=== PATIENT | female | born 1970 | race Caucasian/White ===

== ENCOUNTER → 2021-06-20 08:09 | Outpatient (CLI) | payer OTHER, SELFPAY ==
[2021-06-20 15:43] LABS: COVID19 -Nasal RAPID Negative (Negative)
== END ==
PROVIDERS: PCP Family Medicine; Visit Provider Obstetrics & Gynecology
DX: Z20.822 Contact with and (suspected) exposure to COVID-19 (principal); Z01.812 Encounter for preprocedural laboratory examination
CPT/HCPCS: 87635

== ENCOUNTER 2021-06-21 06:23 | Day surgery (SDC) | payer OTHER, SELFPAY ==
[2021-06-10 10:26] VITALS: BMI 39.0
[2021-06-21] VITALS (13 sets, daily range): BP systolic 124–194; BP diastolic 60–106; PULSE 71–102; RESP 10–20; TEMP 35.6–37; O2SAT 92–100; BMI 38.9
--- NOTE | 2021-06-21 | PATH_ITS ---
[facility] Accession Number: [id number] . 01 Material submitted: . uterus - UTERUS,CERVIX,BILATERAL FALLOPIAN TUBES/OVARIES,R OVARIAN CYST . 02 Diagnosis: Uterus, Cervix, Bilateral Fallopian Tubes and Ovaries, Laparoscopic Assisted Vaginal Hysterectomy and Bilateral Salpingo-Oophorectomy (Weight 102 grams): Cervix with patchy parakeratosis and no significant histomorphologic abnormality. Endocervix with prominent Nabothian gland cysts (1-12 mm); negative for glandular dysplasia or malignancy. Weakly proliferative endometrium; negative for glandular hyperplasia, cytologic atypia, or malignancy. Myometrium with involvement by adenomyosis (posterior wall) and with multiple intramural and subserosal leiomyomata (2-20 mm). Right ovary with prominent benign stromal thecosis and with benign cortical inclusion cysts (1-5 mm). Left ovary with benign stromal thecosis and a benign serous cystadenoma (16 mm). Fallopian tubes x2 with multiple benign paratubal cysts (1-3 mm); negative for atypia or malignancy. [facility] 06/23/2021 1641 Local . 02 Electronically signed: . Samantha Herrera MD, Pathologist NPI- [id number] . 01 Gross description: . The specimen is received in formalin, labeled uterus, cervix, bilateral fallopian tubes, bilateral ovaries, and right ovarian cyst and consists of a 102-gram uterus, cervix, bilateral fallopian tubes and ovaries. The specimen measures 11.2 cm from superior fundus to cervix by 7.0 cm from cornu to cornu by 4.5 cm from anterior to posterior. The serosa is bender-pink and smooth. The bender-pink smooth ectocervix measures 4.0 x 4.0 cm and there is a 1.0 x 0.8 cm os. The specimen is bivalved to reveal a bender-pink, herringbone endocervical mucosa. There are multiple mucoid cysts ranging from 0.1-1.2 cm. The endometrial cavity measures 4.5 x 1.5 cm and displays a bender-pink glistening endometrium measuring 0.1 cm in thickness. The myometrium is bender-pink and trabeculated, measuring 1.7 cm in thickness. There are multiple bender-white whorled intramural and subserosal leiomyomata ranging from 0.2-2.0 cm with no areas of hemorrhage, necrosis or cystic degeneration. . The right ovary measures 3.2 x 2.5 x 2.0 cm and the left ovary measures 3.0 x 2.0 x 1.5 cm. The external surfaces are bender and smooth to cerebriform. Sectioning reveals multiple serous-filled unilocular smooth walled cysts ranging from 0.1-1.6 cm, within both ovaries. No papillary excrescences are identified. The right fallopian tube measures 5.5 cm in length by 1.0 cm in diameter and the left fallopian tube measures 5.6 cm in length by 0.8 cm in diameter. The serosa is pink-purple and smooth with multiple paratubal cysts ranging from 0.1-0.3 cm. Sectioning reveals a bender-pink mucosa and a stellate lumen measuring 0.5 cm in diameter. Hot Head Machine Operator sections are submitted. . A1: Anterior cervix. A2: Posterior cervix. A3-A4: Anterior uterus. A5-A6: Posterior uterus. A7-A9: Hot Head Machine Operator leiomyomata and adenomyosis. A10-A11: Hot Head Machine Operator right ovary. A12: Right fallopian tube, special service representative cross-section and bisected fimbria. A13: Hot Head Machine Operator left ovary. A14: Left fallopian tube, special service representative cross-sections and bisected fimbria. (EA:[id number]) /MRV 06/22/2021 1202 Local . 02 Pathologist provided ICD-10: D25.9, N94.6, N92.0, N81.10, N39.3, N83.209, D27.1 . 02 CPT . [id number] Performed at: 01 [facility] [address] [place] [address] [address], [place], [place] [id number] MD Buck Danielle MD Phone: [phone] Performed at: 02 [facility] [id number] [place] [id number] MD Neli Trivedi MD Phone: [phone]
[2021-06-21] MEDS: LACTATED RINGERS 1,000 ML 100 ML IV ×3 (07:10→11:20)
--- NOTE | 2021-06-21 07:14 | PM.PREOP ---
Pre-operative Note COVID-19 COVID-19 status: Negative Result date/Date tested (Pos, Neg/Pending): 06/20/21 Interval Note History & Physical reviewed/Exam performed by Physician: Yes Changes to H&P: Yes H&P completed within 30 days and has changed as indicated here:: Patient has declined all repair of her bladder. Only LAVH will be performed.
[2021-06-21] MEDS: CEFAZOLIN 1 GM VIAL 2 GM IV (08:00)
--- NOTE | 2021-06-21 08:24 | SUR.OPER ---
Lithotomy on padded OR bed. [place] Pad Positioner under torso. Head on pillow, arms padded and tucked at sides. Legs secured in padded yellow fins stirrups.
[2021-06-21] MEDS: BUPIVACAINE 0.25% W/ EPI 30 ML VIAL 60 ML INJ (08:40)
[2021-06-21] MEDS: ROPIVACAINE 0.2% PF 2 MG/ML 10ML AMP 20 ML INJ (09:10)
[2021-06-21] MEDS: ACETAMINOPHEN IV 1,000 MG/100 ML VIAL 400 MG IV (09:23)
--- NOTE | 2021-06-21 10:04 | P.OP_ITS ---
Operative Date/Time/Diagnoses Date of procedure: 06/21/21 Time of procedure: 10:04 Pre-op diagnosis: Menorrhagia with right ovarian cysts and dysmenorrhea Post-op diagnosis: same Procedure & Clinicians Procedure: Laparoscopic-assisted vaginal hysterectomy with bilateral salpingectomies Same procedure as scheduled: Yes Indications: Menorrhagia, dysmenorrhea, right ovarian cyst Surgeon: Junie Goins Commission Specialist: Suzy Schroeder Click Yes if Unassisted: No Anesthesia Type: General Operative Notes Findings: Adhesions of the omentum to the anterior abdominal wall. No endom etriosis. Small uterine fibroids. Small right ovarian cyst. No obvious internal hernias. Closure Type: primary Specimen(s): other (Uterus, tubes and ovaries) Estimated Blood Loss (mL): 100 Blood products transfused: none Procedure in detail: Patient was brought to the operating room where she underwent general anesthesia. She was placed in [facility] stirrups. A 20 point check system was reviewed. 2 gram Ancef were in prior to beginning case. Wa rming was in place. Pulsatile stockings were in place and functional. She was prepped and draped in the usual sterile fashion. A single-tooth tenaculum was placed on the anterior lip of the cervix. The cervix was dilated to #6 Hegar dilator to allow the uterine manipulator to be placed through the cervix into the uterus with the balloon inflated with 3 mL of air. A latex free Whitten catheter was placed. Area of a prior umbilical incision was injected with lidocaine. An incision was made with the scalpel. The varies needle was placed in the abdomen. Correct placement was noted by withdrawing on the syringe and the having a drop of water fall easily through the syringe into the abdomen. The abdomen was insufflated with CO2. 5 mm trochars were placed in the right and left lower quadrant under direct visualization. There did not appear to be any damage with placement of the trochars. The PK generator was used to cauterize and cut the infundibulopelvic ligaments bilaterally. Sequential bites were taken down the broad ligament freeing the fallopian tubes and ovaries bilaterally. Next the procedure was switched to a vaginal approach. A double-tooth tenaculum was placed on the cervix. The tissue around the cervix was injected with 1/4 % Marcaine with epinephrine approximately 12 cc. An incision was made around the cervix and the tissue pushed superiorly. And a posterior colpotomy incision was made. The uterosacral ligaments were clamped, cut, and ligated with 0 Vicryl suture which was used throughout the rest the case unless otherwise indicated. The bladder pillars were clamped cut and ligated. Using sharp and blunt dissection the bladder was pushed away from the cervix. Sequential bites were taken up the cardinal and broad ligaments with the LigaSure. An anterior colpotomy incision was made and the bladder held away from the uterus. The uterus tubes and ovaries were removed vaginally. Adequate hemostasis noted. The vaginal cuff was closed from anterior to posterior with [id number] sutures of 0 Vicryl. The abdomen was reinsufflated and adequate hemostasis was obtained with the gyrus. The CO2 was allowed to escape from the abdomen and the trochars were removed. The skin was closed with 4-0 Monocryl. Counts of instruments and sponges were correct. Patient went to recovery room in good condition. Complications: none Post-operative Condition: stable Disposition: Acute Care (Overnight evaluation) Plan for aftercare: Likely home in a.m.
[2021-06-21] MEDS: KETOROLAC 30 MG/ML VIAL IV ×2 (11:19→16:20)
--- NOTE | 2021-06-21 15:02 | PC.NURSE ---
Pt is A&Ox3, VSS, afebrile. Pt on RA 97% LS CTA. arrived to unit from PACU at 1030. Shortly after arrival assisted x1 SBA to BR voiding large amounts of clear yellow urine, drinking several cups of water. Pt denies N/V yet declines food this afternoon. Pt reports good pain control with IV toradol took the edge off she states she feels good walking around and standing ambulating the back multiple times. Pt with + BS. Foist evaluating patient this afternoon at bedside reports she may return to discharge patient home later this evening.
--- NOTE | 2021-06-21 16:16 | P.DS_ITS ---
History of Present Illness History of Present Illness Date Patient Seen: 06/21/21 Time Patient Seen: 16:16 Chief complaint: OPB Narrative: Patient is status post laparoscopic assisted vaginal hysterectomy with bilateral salpingo oophorectomies. She was originally scheduled to spend the night but she is doing so well she is requesting discharge home now. Discharge Providers Provider Discharge Date: 06/21/21 Primary care physician: Sofia Benitez DO Consults: 06/21/21 10:34 Consult to Respiratory Therapy Evaluate & Treat Comment: sleep apnea Physician Instructions: Evaluate and treat Discharge provider: Junie Goins MD Summary Hospital Course Discharge Diagnosis: Menorrhagia and dysmenorrhea Hospital Course: Patient underwent a laparoscopic assisted vaginal hysterectomy with bilateral salpingo oophorectomy. Patient is ambulatory. She is urinating well. She has her pain well controlled with oral pain medicine. She is tolerating regular diet. Status at Discharge Cognitive/behavioral status at discharge: oriented Functional status at discharge: independent ambulation Overall status at discharge: patient is progressing back to baseline Time Spent with Patient Time spent: Less than 30 minutes Exam Vital Signs (past 8 hours): - 06/21/21 09:39 06/21/21 09:44 06/21/21 09:49 Temperature 97.6 F 96.3 F L 96.1 F L Pulse Rate 97 H 96 H 95 H Respiratory Rate 13 13 10 L Blood Pressure 127/78 132/75 131/80 Pulse Oximetry 92 98 100 06/21/21 09:54 06/21/21 10:06 06/21/21 10:09 Temperature 96.1 F L 97.4 F L 96.5 F L Pulse Rate 98 H 77 Respiratory Rate 10 L 12 Blood Pressure 132/74 136/71 Pulse Oximetry 100 97 06/21/21 10:22 06/21/21 10:30 06/21/21 11:00 Temperature 96.6 F L 97.6 F 98 F Pulse Rate 79 71 81 Respiratory Rate 12 17 16 Blood Pressure 138/76 124/60 140/91 H Pulse Oximetry 97 97 95 06/21/21 11:30 06/21/21 12:22 06/21/21 15:42 Temperature 98 F 98.1 F 97.6 F Pulse Rate 92 H 76 84 Respiratory Rate 16 16 18 Blood Pressure 157/105 H 140/90 136/88 Pulse Oximetry 97 97 97 Oxygen Delivery Method Room Air Oxygen Flow Rate 0 Narrative Exam Narrative: Patient's abdomen is soft, nontender. Dressings are clean, dry, intact. Minimal vaginal bleeding. Extremities without edema and nontender. [facility] Medical History (Updated 06/03/21 @ 21:55 by Junie Goins MD) Abnormal Pap smear of cervix (~1999) Fibroids (~2018) Glaucoma (~1970) Malignant hyperthermia due to anesthesia Menorrhagia with irregular cycle (~1999) Painful menstrual periods (~1999) Right ovarian cyst (~1999) Sleep apnea (~2014) Tinea versicolor (~1985) Tinnitus (~2017) Vertigo (~1985) Surgical History (Updated 06/21/21 @ 09:59 by Junie Goins MD) Anesthesia History of appendectomy (~1988) History of cholecystectomy (~1989) Family History (Updated 05/25/21 @ 20:31 by Gayla Lynn) Father History of emphysema Grandfather Cancer Grandmother Cancer Social History household members: spouse Smoking Status: Former smoker alcohol intake: current Discharge Assessment & Plan Assessment and Plan Assessment: Patient is status post laparoscopic-assisted vaginal hysterectomy with bilateral salpingo oophorectomy who is doing very well so decision was made to discharge home. Plan of Treatment: Patient will be discharged home to be followed up in 2 weeks. Routine precautions reviewed with the patient. Discharge Plan Discharge Plan Patient Disposition: Home Discharge orders & Medications Discharge Orders: Discharge (Order); Ordered 06/21/21 Ordered By: Junie Goins Prescriptions: New tramadol 50 mg Tablet 100 mg PO QID PRN (Reason: Pain, Moderate (4-6)) Qty: 30 RF: 0 Discontinued acetaminophen-codeine 300-30 mg tablet 1 tab PO Q4-6H PRN (Reason: pain) Qty: 30 RF: 0 Follow up/Referrals: Sofia Benitez DO [Primary Care Provider] - Diet/Activity/Treatments Diet: Regular Activity: Nothing in vagina or lifting over 20 lb for 6 weeks Skin/Wound/Dressing Care Report to your healthcare provider any signs of infection, such as:: chills, fever and increased pain Dressing: The Band-Aids on until tomorrow then remove. Can get Steri-Strips wet just pat dry remove in 1 week if they have not fallen off Visit Report/Discharge Packet Instructions: DI for Hysterectomy, DI for Laparoscopy Discharge Data Primary Care Provider: Sofia Benitez Attending Provider: Junie Goins
--- NOTE | 2021-06-21 17:19 | PC.NURSE ---
pt' pain was 4/10 well controlled with ordered toradol, pt discharge instructions given, pt took all belongings from room and was escorted by nurse to car, pt left with spouse at 1715.
== END 2021-06-21 17:15 | disposition home or self-care (01) ==
LOC: OR 06:24 → AC 10:15
PROVIDERS: PCP Family Medicine; Referring Provider Specialist; Visit Provider Specialist
PROC: 0UT9FZZ Resection of Uterus, Via Natural or Artificial Opening With Percutaneous Endoscopic Assistance (ICD-10-PCS; principal; 2021-06-21 07:45)
DX: N92.0 Excessive and frequent menstruation with regular cycle (principal); N94.6 Dysmenorrhea, unspecified; N83.201 Unspecified ovarian cyst, right side; K66.0 Peritoneal adhesions (postprocedural) (postinfection); G47.30 Sleep apnea, unspecified; F41.9 Anxiety disorder, unspecified; E66.9 Obesity, unspecified; Z68.39 Body mass index [BMI] 39.0-39.9, adult; N88.8 Other specified noninflammatory disorders of cervix uteri; N83.8 Other noninflammatory disorders of ovary, fallopian tube and broad ligament; N83.291 Other ovarian cyst, right side; D39.12 Neoplasm of uncertain behavior of left ovary; D39.11 Neoplasm of uncertain behavior of right ovary; D25.1 Intramural leiomyoma of uterus; D25.2 Subserosal leiomyoma of uterus
CPT/HCPCS: 58552; J0131; J0690; J1100; J1885; J2405; J2704; J2795; J3010

== ENCOUNTER → 2022-03-20 09:29 | Outpatient (CLI) | payer OTHER, SELFPAY ==
[2021-06-21 10:34] VITALS: BMI 38.9
[2022-03-20 10:00] LABS: Add Manual Diff / Slide Review NO; Basophils Absolute Auto 0 /uL (0-100); Basophils Percent Auto 0.3 % (0-2); Eosinophils Absolute Auto 100 /uL (0-450); Eosinophils Percent Auto 1.2 % (2-4); Hematocrit 42.8 % (36-46); Hemoglobin 14.1 g/dL (12.0-16.0); Lymphocytes Absolute Auto 2300 /uL (1100-4500); Lymphocytes Percent Auto 25.5 % (25-40); Mean Corpuscular Hemoglobin 28.1 PG (26-34); Mean Corpuscular Volume 85.2 fL (80-100); Monocytes Absolute Auto 600 /uL (0-900); Monocytes Percent Auto 6.4 % (3-14); Neutrophils Absolute Auto 5900 /uL (1500-7000); Neutrophils Percent Auto 66.6 % (50-75); Platelet Count 265 X10^3/uL (150-400); Red Blood Cell Count 5.02 X10^6/uL (4.0-5.2); White Blood Cell Count 8.9 X10^3/uL (4.5-11.0)
[2022-03-20 10:27] LABS: Alanine Aminotransferase 37 IU/L (<35); Albumin 4.7 g/dL (3.5-5.0); Albumin Globulin Ratio 1.6 (1.0-2.8); Aspartate Aminotransferase 31 IU/L (14-36); BUN Creatinine Ratio 17.1 (6-22); Bilirubin Total 0.4 mg/dL (0.2-1.3); Blood Urea Nitrogen 13 mg/dL (7-17); Calcium 9.4 mg/dL (8.4-10.2); Carbon Dioxide 27 mmol/L (22-32); Chloride 104 mmol/L (98-107); Cholesterol 137 mg/dL (140-199); Estimated Glomerular Filt Rate > 60 mL/min (>60); Glucose 134 mg/dL (70-100); HDL Cholesterol 49 mg/dL (40-60); HEMOLYSIS < 15 (0-50); LDL Cholesterol Calculated 71 mg/dL (<100); Potassium 4.8 mmol/L (3.4-5.1); Sodium 139 mmol/L (137-145); Total Protein 7.7 g/dL (6.3-8.2); Triglycerides 85 mg/dL (35-150)
[2022-03-20 10:32] LABS: Alkaline Phosphatase 82 U/L (38-126)
[2022-03-20 10:39] LABS: Vitamin D 25 Hydroxy (D3) 32.9 ng/mL (30.0-100.0)
== END ==
PROVIDERS: PCP Family Medicine; Referring Provider Family Medicine; Visit Provider Family Medicine
DX: Z13.220 Encounter for screening for lipoid disorders (principal); E55.9 Vitamin D deficiency, unspecified; R10.30 Lower abdominal pain, unspecified
CPT/HCPCS: 36415; 80053; 80061; 82306; 85025; 87086

== ENCOUNTER → 2022-03-20 10:28 | Outpatient (CLI) | payer OTHER, SELFPAY ==
[2021-06-21 10:34] VITALS: BMI 38.9
--- NOTE | 2022-03-20 10:31 | DI.RAD.S_ITS ---
PROCEDURE: XR ABDOMEN MIN 2V INDICATIONS: low abdominal pain TECHNIQUE: 2 views of the abdomen were acquired. COMPARISON: None. FINDINGS: Surgical changes and devices: Cholecystectomy clips. Bowel: No pneumoperitoneum. Paucity of small bowel gas limits evaluation for small bowel dilatation. There is scattered gas in the colon and stomach. No dilated loops of bowel identified. Soft tissues: No masses; visualized solid organ contours appear normal in size. No suspicious abdominal calcifications. Bones: No suspicious bony abnormalities. IMPRESSION: Paucity of small bowel gas limits evaluation for small bowel dilatation. However, suspect nonobstructive bowel gas pattern. If clinically indicated consider further evaluation with CT abdomen pelvis with IV contrast. Dictated by: Simeon Snell M.D. on 03/20/2022 at 11:25 Approved by: Simeon Snell M.D. on 03/20/2022 at 11:27
== END ==
PROVIDERS: PCP Family Medicine; Referring Provider Nurse Practitioner Family; Visit Provider Nurse Practitioner Family
DX: R10.30 Lower abdominal pain, unspecified (principal); R73.01 Impaired fasting glucose; Z13.220 Encounter for screening for lipoid disorders; E55.9 Vitamin D deficiency, unspecified
CPT/HCPCS: 36415; 74019; 80053; 80061; 82306; 83036; 85025; 87086

== ENCOUNTER → 2022-03-20 14:25 | Outpatient (CLI) | payer OTHER, SELFPAY ==
[2021-06-21 10:34] VITALS: BMI 38.9
[2022-03-20 14:47] LABS: Hemoglobin A1C% w Est Avg Glu 6.6 % (4.0-6.0)
== END ==
PROVIDERS: PCP Family Medicine; Referring Provider Family Medicine; Visit Provider Family Medicine
DX: R73.01 Impaired fasting glucose (principal)
CPT/HCPCS: 83036

== ENCOUNTER 2022-03-21 17:06 | Emergency (ER) | payer OTHER, SELFPAY ==
[2021-06-21 10:34] VITALS: BMI 38.9
[2022-03-21 17:11] VITALS: BP 175/7; PULSE 93; RESP 16; TEMP 37; O2SAT 98; BMI 38.6
--- NOTE | 2022-03-21 17:48 | DI.CT.S_ITS ---
PROCEDURE: CT ABDOMEN PELVIS W CON INDICATIONS: partial bowel obstruction TECHNIQUE: After the administration of oral and IV contrast, axial sections were acquired from the lung bases to the pubic symphysis. Coronal and sagittal reformats were performed. For radiation dose reduction, the following was used: automated exposure control, adjustment of mA and/or kV according to patient size. COMPARISON: None. FINDINGS: Image quality: Excellent. Lung bases: Unremarkable. Heart: No significant findings. ABDOMEN: Liver: Normal contour. Hepatic steatosis. Enlarged, measuring 21.6 cm in length. Gallbladder: Surgically absent. Biliary ducts: Unremarkable. Pancreas: Unremarkable. Spleen: Unremarkable. Adrenal Glands: Unremarkable. Kidneys and Ureters: Unremarkable. Stomach and Bowel: No evidence of intestinal obstruction. Sigmoid diverticulosis. The appendix is not well seen. Peritoneum: No abnormal intraperitoneal fluid. No free air. Ventral Wall: Small fat containing periumbilical hernia. Fatty atrophy of the right rectus muscle. Abdominal Nodes: No retroperitoneal or mesenteric adenopathy by size criteria. Vessels: Aorta and inferior vena cava are normal in size. PELVIS: Pelvic Organs: Unremarkable. Bladder: Unremarkable. Pelvic Nodes: No enlarged lymph nodes. Miscellaneous: No inguinal hernias are seen. Bones: Unremarkable. IMPRESSION: 1. No acute intra-abdominal/pelvic abnormality. 2. Hepatomegaly with steatosis. Dictated by: Joss Grubbs M.D. on 03/21/2022 at 18:42 Approved by: Joss Grubbs M.D. on 03/21/2022 at 18:45
[2022-03-21 18:00] LABS: Add Manual Diff / Slide Review NO; Basophils Absolute Auto 100 /uL (0-100); Basophils Percent Auto 0.5 % (0-2); Eosinophils Absolute Auto 100 /uL (0-450); Eosinophils Percent Auto 1.4 % (2-4); Hematocrit 42.7 % (36-46); Hemoglobin 14.3 g/dL (12.0-16.0); Lymphocytes Absolute Auto 2600 /uL (1100-4500); Lymphocytes Percent Auto 28.5 % (25-40); Mean Corpuscular HGB Conc 33.5 % (30-36); Mean Corpuscular Hemoglobin 28.3 PG (26-34); Mean Corpuscular Volume 84.4 fL (80-100); Monocytes Absolute Auto 800 /uL (0-900); Monocytes Percent Auto 8.2 % (3-14); Neutrophils Absolute Auto 5600 /uL (1500-7000); Neutrophils Percent Auto 61.4 % (50-75); Platelet Count 243 X10^3/uL (150-400); Red Blood Cell Count 5.06 X10^6/uL (4.0-5.2); Red Cell Distribution Width 13.9 % (11.6-14.8); White Blood Cell Count 9.2 X10^3/uL (4.5-11.0)
[2022-03-21 18:09] LABS: Alanine Aminotransferase 37 IU/L (<35); Albumin Globulin Ratio 1.6 (1.0-2.8); Alkaline Phosphatase 82 U/L (38-126); Aspartate Aminotransferase 36 IU/L (14-36); BUN Creatinine Ratio 20.8 (6-22); Bilirubin Total 0.7 mg/dL (0.2-1.3); Blood Urea Nitrogen 15 mg/dL (7-17); Calcium 9.2 mg/dL (8.4-10.2); Carbon Dioxide 24 mmol/L (22-32); Chloride 104 mmol/L (98-107); Estimated Glomerular Filt Rate > 60 mL/min (>60); Globulin 3.2 g/dL (1.7-4.1); Glucose 107 mg/dL (70-100); HEMOLYSIS 60 (0-50); Lipase 107 U/L (23-300); Potassium 4.1 mmol/L (3.4-5.1); Sodium 138 mmol/L (137-145); Total Protein 8.2 g/dL (6.3-8.2)
--- NOTE | 2022-03-21 18:35 | PC.NURSE ---
patients IV accidentally pulled out by the patient while she was pulling up her pants. dressing applied by install and repair technician. bleeding controlled.
--- NOTE | 2022-03-21 20:50 | ED.ABDPAIN ---
HPI - Abdominal Pain General Chief Complaint: Abdominal Pain Stated Complaint: possible bowel blockage Time Seen by Provider: 03/21/22 20:50 Source: patient Mode of arrival: Ambulatory Limitations: no limitations History of Present Illness HPI narrative: This is a 52-year-old female comes emergency department for concern for possible bowel blockage. She has had some nausea, abdominal pain in the lower abdomen and periumbilical as well as small thin snake like stools which have been soft the past week. Patient's feels like she has to align her body to a and push very hard have bowel movements. Patient denies any fevers. No vomiting. No back or flank pain. No dysuria urgency or frequency. No black or bloody stools. She has had hysterectomy. She had an x-ray yesterday at her primary care physician was read as possible bowel obstruction. She had urine specimen yesterday which shows no acute changes in urine culture has shown no growth to date. Patient does note she had a sensation of some fullness at the vaginal opening after her surgery which was earlier in the year. She tried some pelvic floor exercises for the past 2 weeks and that is when she started to notice a change in her bowel movements. Related Data Home Medications Medication Instructions Recorded Confirmed No Known Home Medications 11/29/21 03/20/22 Allergies Allergy/AdvReac Type Severity Reaction Status Date / Time morphine Allergy Severe thoat Verified 03/21/22 17:18 swelling, hives topiramate Allergy Severe throat Verified 03/21/22 17:18 swelling, hives ibuprofen AdvReac Severe Headache Verified 03/21/22 17:18 meperidine [From Demerol] AdvReac Severe Vomiting Verified 03/21/22 17:18 oxycodone [From Percocet] AdvReac Severe Vomiting Verified 03/21/22 17:18 Latex, Natural Rubber AdvReac Intermediate Redness of Verified 03/21/22 17:18 Skin Review of Systems Review of Systems ROS Unobtainable: All systems reviewed & are unremarkable except as noted in HPI and below Patient History Medical History Abnormal Pap smear of cervix (~1999) Chicken pox (~1980) Chronic back pain (~2018) Elevated blood pressure reading without diagnosis of hypertension Elevated fasting glucose Fibroids (~2018) Glaucoma (~1970) Heavy menstrual period (~2012) Hx of malignant hyperthermia Hypertension (~1988) Painful menstrual periods (~1999) Post covid-19 condition, unspecified Right ovarian cyst (~1999) Sleep apnea (~2014) Tinea versicolor (~1985) Tinnitus (~2017) Vertigo (~1985) Vitamin D deficiency Surgical History Anesthesia History of appendectomy (~1988) History of cholecystectomy (~1989) S/P bilateral salpingo-oophorectomy (~06/21/21) S/P laparoscopic assisted vaginal hysterectomy (LAVH) (~06/21/21) Family History Father History of emphysema COPD (chronic obstructive pulmonary disease) Grandfather Cancer Grandmother Cancer Mother Breast cancer Grandmother Colon cancer Son Cancer of leg Social History household members: spouse Smoking Status: Former smoker alcohol intake: current Smoking Status: Former smoker alcohol intake frequency: holidays/special occasions only Substance Use Type: does not use Exam Narrative Exam Narrative: GENERAL: Alert and oriented x three, female in mild distress. HEENT: Head normocephalic, atraumatic, EOMI, pupils reactive, face symmetric, moist mucous membranes NECK: Supple, full range of motion CARDIOVASCULAR: Regular rate and rhythm without murmurs, rubs or gallops. RESPIRATORY: Breath sounds equal bilaterally, no wheezes rales or rhonchi. ABDOMEN: Soft, mild tenderness mainly a periumbilical region. bowel sounds all 4 quadrants. No guarding or rebound, rigidity, no mass : No CVA tenderness EXTREMITIES: Normal range of motion, no clubbing or edema. Neurovascularly intact NEUROLOGICAL: Cranial nerves II through XII grossly intact. Moving all extremities SKIN: Warm, dry, no petechiae, no rashes or lesions. Initial Vital Signs Initial Vital Signs: Vital Signs Temperature 98.6 F 03/21/22 17:11 Pulse Rate 93 H 03/21/22 17:11 Respiratory Rate 16 03/21/22 17:11 Blood Pressure 175/7 H 03/21/22 17:11 Pulse Oximetry 98 03/21/22 17:11 Course Orders Ordered: Discontinued Medications Ondansetron HCl (Ondansetron 4 Mg/2 Ml Inj) 4 mg IV NOW ONE Stop: 03/21/22 18:24 Vital Signs Vital signs: Vital Signs - 8 hr 03/21/22 17:11 03/21/22 21:06 03/21/22 21:07 Temperature 98.6 F Pulse Rate 93 H 85 86 Respiratory Rate 16 Blood Pressure 175/7 H 176/101 H Pulse Oximetry 98 98 98 MDM - Abdominal Pain Lab Data Result diagrams: 03/21/22 17:40 03/21/22 17:40 Labs: Lab Results 03/21/22 03/21/22 Range/Units 17:40 17:40 WBC 9.2 (4.5-11.0) X10^3/uL RBC 5.06 (4.0-5.2) X10^6/uL Hgb 14.3 (12.0-16.0) g/dL Hct 42.7 (36-46) % MCV 84.4 (80-100) fL MCH 28.3 (26-34) PG MCHC 33.5 (30-36) % RDW 13.9 (11.6-14.8) % Plt Count 243 (150-400) X10^3/uL Neut % (Auto) 61.4 (50-75) % Lymph % (Auto) 28.5 (25-40) % [place] % (Auto) 8.2 (3-14) % Eos % (Auto) 1.4 L (2-4) % Baso % (Auto) 0.5 (0-2) % Neut # (Auto) 5600 (3591-4153) /uL Lymph # (Auto) 2600 (1360-3398) /uL [place] # (Auto) 800 (0-900) /uL Eos # (Auto) 100 (0-450) /uL Baso # (Auto) 100 (0-100) /uL Sodium 138 (137-145) mmol/L Potassium 4.1 (3.4-5.1) mmol/L Chloride 104 (98-107) mmol/L Carbon Dioxide 24 (22-32) mmol/L BUN 15 (7-17) mg/dL Creatinine 0.72 (0.52-1.04) mg/dL Estimated GFR > 60 (>60) mL/min BUN/Creatinine Ratio 20.8 (6-22) Glucose 107 H (70-100) mg/dL Calcium 9.2 (8.4-10.2) mg/dL Total Bilirubin 0.7 (0.2-1.3) mg/dL AST 36 (14-36) IU/L ALT 37 H (<35) IU/L Alkaline Phosphatase 82 (38-126) U/L Total Protein 8.2 (6.3-8.2) g/dL Albumin 5.0 (3.5-5.0) g/dL Globulin 3.2 (1.7-4.1) g/dL Albumin/Globulin Ratio 1.6 (1.0-2.8) Lipase 107 (23-300) U/L Imaging Data CT scan - abdomen/pelvis: Radiologist's Impression: [address] [address] [address] Scan Report Signed Patient: Hannah Valderrama MR#: [id number] : 1970 Acct:[id number] Age/Sex: 52 / F Date of Service: 03/21/22 Loc: ED Accession Number: [id number] ?? Procedure: CT abdomen pelvis w con Ordering Provider: Yen Soto D.O. PROCEDURE:? CT ABDOMEN PELVIS W CON ? INDICATIONS:? partial bowel obstruction ? TECHNIQUE:? After the administration of oral and IV contrast, axial sections were acquired from the lung bases to the pubic symphysis.? Coronal and sagittal reformats were performed.? For radiation dose reduction, the following was used:? automated exposure control, adjustment of mA and/or kV according to patient size. ? COMPARISON:? None. ? FINDINGS:? Image quality:? Excellent.? ? Lung bases:? Unremarkable.? ? Heart:? No significant findings. ? ? ABDOMEN: Liver:? Normal contour.? Hepatic steatosis.? ? Enlarged, measuring 21.6 cm in length. Gallbladder:? Surgically absent.? ? Biliary ducts:? Unremarkable.? ? Pancreas:? Unremarkable.? ? Spleen:? Unremarkable.? ? Adrenal Glands:? Unremarkable.? ? Kidneys and Ureters:? Unremarkable.? ? ? Stomach and Bowel:? No evidence of intestinal obstruction.? Sigmoid diverticulosis.? The appendix is not well seen. Peritoneum:? No abnormal intraperitoneal fluid.? No free air.? ? Ventral Wall:? Small fat containing periumbilical hernia.? Fatty atrophy of the right rectus muscle. Abdominal Nodes:? No retroperitoneal or mesenteric adenopathy by size criteria.? Vessels:? Aorta and inferior vena cava are normal in size.? ? PELVIS: Pelvic Organs:? Unremarkable.? ? Bladder:? Unremarkable.? ? Pelvic Nodes: No enlarged lymph nodes.? Miscellaneous: No inguinal hernias are seen. ? ? ? Bones:? Unremarkable.? IMPRESSION:? ? 1. No acute intra-abdominal/pelvic abnormality. 2. Hepatomegaly with steatosis.? ? ? Dictated by: Joss Grubbs M.D. on 03/21/2022 at 18:42 ? ? Approved by: Joss Grubbs M.D. on 03/21/2022 at 18:45?? [facility] Narrative Medical decision making narrative: This is a 52-year-old female with abdominal, nausea and thin stools for the past week. CT does not show any signs of obstruction. Labs are reassuring, urine from yesterday is negative in urine culture pending has not shown any growth. She has had a hysterectomy. We discussed differential could include adhesions, changes to pelvic floor, we discussed she did have a pattern megaly, she has some diverticulosis but no diverticulitis. And a small fat containing periumbilical hernia as well as fatty atrophy of the right rectus muscle. These were all discussed with patient. Plan for follow-up with primary care, possible colonoscopy if symptoms persist, pelvic floor PT and re-evaluation if new worsening abdominal pain. Discharge Plan Departure Patient Disposition: Home Clinical Impression: Abdominal pain, Hepatomegaly Instructions: DI for Abdominal Pain-Adult Activity Restrictions/Additional Instructions: Follow-up with her physician for recheck Your imaging today shows hepatomegaly with steatosis, your abdominal labs do not show major changes to your liver enzymes but please follow with your physician. Diet changes and weight loss are the most helpful components to treating this over the long-term. You do have a small fat containing periumbilical hernia. It is noted that there was some fatty atrophy of the right rectus muscle. Please return to the ER for fevers, rapidly worsening pain, passing out, persistent vomiting, black or bloody stools if your not having any bowel movements, passing gas or flatus or other new or concerning symptoms. Prescriptions: No Action No Known Home Medications 0RF Referrals: Mert Dominguez DO [Primary Care Provider] -
[2022-03-21 21:06] VITALS: PULSE 85; O2SAT 98
[2022-03-21 21:07] VITALS: BP 176/101; PULSE 86; O2SAT 98
== END 2022-03-21 21:38 | disposition home or self-care (01) ==
PROVIDERS: Emergency Medicine; Emergency Provider Emergency Medicine; PCP Family Medicine
DX: R10.30 Lower abdominal pain, unspecified (principal); R11.0 Nausea; R16.0 Hepatomegaly, not elsewhere classified
CPT/HCPCS: 36415; 74177; 80053; 83690; 85025; 99283; Q9967

== ENCOUNTER → 2022-03-24 10:03 | Outpatient (CLI) | payer OTHER, SELFPAY ==
[2021-06-21 10:34] VITALS: BMI 38.9
[2022-03-27 12:42] LABS: Fecal Immunochemical Test Negative (Negative)
== END ==
PROVIDERS: PCP Family Medicine; Referring Provider Family Medicine; Visit Provider Family Medicine
DX: Z12.11 Encounter for screening for malignant neoplasm of colon (principal)
CPT/HCPCS: 82274

== ENCOUNTER → 2022-06-14 07:00 | Outpatient (CLI) | payer OTHER, SELFPAY ==
[2021-06-21 10:34] VITALS: BMI 38.9
[2022-06-14 08:09] LABS: Add Manual Diff / Slide Review NO; Basophils Absolute Auto 0 /uL (0-100); Basophils Percent Auto 0.4 % (0-2); Eosinophils Absolute Auto 100 /uL (0-450); Eosinophils Percent Auto 1.8 % (2-4); Hematocrit 42.2 % (36-46); Hemoglobin 13.9 g/dL (12.0-16.0); Lymphocytes Absolute Auto 2400 /uL (1100-4500); Lymphocytes Percent Auto 33.9 % (25-40); Mean Corpuscular HGB Conc 32.9 % (30-36); Mean Corpuscular Hemoglobin 28.2 PG (26-34); Mean Corpuscular Volume 85.7 fL (80-100); Monocytes Absolute Auto 500 /uL (0-900); Monocytes Percent Auto 6.6 % (3-14); Neutrophils Absolute Auto 4100 /uL (1500-7000); Neutrophils Percent Auto 57.3 % (50-75); Platelet Count 222 X10^3/uL (150-400); Red Blood Cell Count 4.92 X10^6/uL (4.0-5.2); Red Cell Distribution Width 14.9 % (11.6-14.8); White Blood Cell Count 7.1 X10^3/uL (4.5-11.0)
[2022-06-14 08:31] LABS: Alanine Aminotransferase 30 IU/L (<35); Albumin 4.5 g/dL (3.5-5.0); Albumin Globulin Ratio 1.7 (1.0-2.8); Alkaline Phosphatase 81 U/L (38-126); Aspartate Aminotransferase 22 IU/L (14-36); BUN Creatinine Ratio 23.1 (6-22); Bilirubin Total 0.4 mg/dL (0.2-1.3); Blood Urea Nitrogen 18 mg/dL (7-17); Calcium 9.5 mg/dL (8.4-10.2); Carbon Dioxide 26 mmol/L (22-32); Chloride 105 mmol/L (98-107); Cholesterol 133 mg/dL (140-199); Estimated Glomerular Filt Rate > 60 mL/min (>60); Globulin 2.7 g/dL (1.7-4.1); Glucose 114 mg/dL (70-100); HDL Cholesterol 51 mg/dL (40-60); HEMOLYSIS < 15 (0-50); LDL Cholesterol Calculated 60 mg/dL (<100); Sodium 140 mmol/L (137-145); Total Protein 7.2 g/dL (6.3-8.2); Triglycerides 108 mg/dL (35-150)
== END ==
PROVIDERS: PCP Family Medicine; Referring Provider Family Medicine; Visit Provider Family Medicine
DX: R16.0 Hepatomegaly, not elsewhere classified (principal); E11.9 Type 2 diabetes mellitus without complications; R03.0 Elevated blood-pressure reading, without diagnosis of hypertension
CPT/HCPCS: 36415; 80053; 80061; 83036; 85025

== ENCOUNTER 2024-10-04 11:42 | Emergency (ER) | payer OTHER, SELFPAY ==
[2021-06-21 10:34] VITALS: BMI 38.9
[2024-10-04] VITALS (18 sets, daily range): BP systolic 160–213; BP diastolic 72–104; PULSE 77–99; RESP 11–26; TEMP 36.6–36.9; O2SAT 95–99; BMI 39.5
--- NOTE | 2024-10-04 12:59 | ED_ITS ---
HPI - Back Pain/Injury General Chief Complaint: Back Pain/Injury Stated Complaint: abd pain and back pain Time Seen by Provider: 10/04/24 12:59 History of Present Illness HPI Narrative: Patient is a 54-year-old female past medical history of hypertension comes into the ED from home for evaluation of low back pain. She states that she was bending over to unlatch a drawer and threw out her back. states that she does have a history of degenerative disc disease in L4-L5, does arrive by ambulance, according to EMS they did offer her medications prior to arrival but refused it stating that she was allergic to everything She states that she is very sensitive to all medications states that she was able to stand and ambulate with help when EMS arrived but she is worried that she may have broke her back therefore at time of initial evaluation patient is stating that she is too afraid to attempt to stand or walk without any imaging. Related Data Previous Rx's Medication Instructions Recorded diazepam 2 mg tablet (Valium) 2 mg PO BID PRN muscle spasm 5 10/04/24 days #10 tabs prednisone 20 mg tablet 20 mg PO DAILY 5 days #5 tabs 10/04/24 Allergies Allergy/AdvReac Type Severity Reaction Status Date / Time morphine Allergy Severe thoat Verified 04/12/22 09:56 swelling, hives topiramate Allergy Severe throat Verified 04/12/22 09:56 swelling, hives ibuprofen AdvReac Severe Headache Verified 04/12/22 09:56 meperidine [From Demerol] AdvReac Severe Vomiting Verified 04/12/22 09:56 oxycodone [From Percocet] AdvReac Severe Vomiting Verified 04/12/22 09:56 Latex, Natural Rubber AdvReac Intermediate Redness of Verified 04/12/22 09:56 Skin Review of Systems Review of Systems Narrative: General: Denies fever, chills, weight loss HEENT: Denies headache, eye drainage, eye irritation, head trauma, sore throat, voice change Cardiovascular: Denies any chest pain, palpitations, shortness of breath, tachycardia Respiratory: Denies any shortness of breath, cough, wheeze, stridor GI/: Denies any abdominal pain, nausea, vomiting, diarrhea, bright red blood per rectum, melanotic stools, urinary frequency, urinary retention, dysuria, hematuria MSK: positive lumbar pain Skin: Denies any rashes, lesions, discoloration Neuro: Denies any headache, lightheadedness, dizziness, fainting, weakness Psych: Denies SI/HI Patient History Medical History (Updated 10/04/24 @ 15:59 by Tye Snydre DO) Weight loss counseling, encounter for Decreased stool caliber DM2 (diabetes mellitus, type 2) Chronic back pain (~2018) Chicken pox (~1980) Painful menstrual periods (~1999) Heavy menstrual period (~2012) Hypertension (~1988) Post covid-19 condition, unspecified Elevated blood pressure reading without diagnosis of hypertension Hx of malignant hyperthermia Vitamin D deficiency Tinea versicolor (~1985) Sleep apnea (~2014) Vertigo (~1985) Tinnitus (~2017) Glaucoma (~1970) Fibroids (~2018) Abnormal Pap smear of cervix (~1999) Right ovarian cyst (~1999) Surgical History S/P bilateral salpingo-oophorectomy (~06/21/21) S/P laparoscopic assisted vaginal hysterectomy (LAVH) (~06/21/21) Anesthesia History of cholecystectomy (~1989) History of appendectomy (~1988) Family History Father History of emphysema COPD (chronic obstructive pulmonary disease) Grandfather Cancer Grandmother Cancer Mother Breast cancer Grandmother Colon cancer Son Cancer of leg Social History household members: spouse Smoking Status: Former smoker alcohol intake: current Smoking Status: Former smoker alcohol intake frequency: holidays/special occasions only Substance Use Type: does not use Exam Narrative Exam Narrative: General: Cooperative, comfortable, well-developed, not in acute distress HEENT: Normocephalic, atraumatic, PERRLA, normal sclera, eyelids normal, Neck: Active full range of motion, atraumatic Chest: Normal to inspection, negative crepitus, no overlying erythema ecchymosis Respiratory: Normal respiratory effort, not in acute respiratory distress, clear to auscultation bilaterally negative cough, wheeze, tachypnea, rhonchi, rales Cardiology: Regular rate rhythm negative gallop, murmur, rubs GI/: Normal to inspection, soft, nonrigid, no tenderness to palpation, exam deferred MSK: bilateral lower extremities neurovascularly intact, positive straight leg test of the left, there is some tenderness to palpation of the paraspinal muscles of the left side Skin: No rashes lesions noted Neuro: Alert awake oriented x3, moves all 4 extremities spontaneously, cranial nerves intact, able to answer all questions appropriately follows commands appropriately Psych: Cooperative, negative suicidal or homicidal ideations Initial Vital Signs Initial Vital Signs: Vital Signs Blood Pressure 213/103 H 10/04/24 11:48 Course Orders Ordered: ED Orders 10/04/24 13:30 CT lumbar spine wo con Stat Discontinued Medications Diazepam (Diazepam 2 Mg Tablet) 2 mg PO NOW ONE Stop: 10/04/24 13:32 Last Admin: 10/04/24 13:56 Dose: 1 mg Documented By: YURY Prednisone (Prednisone 20 Mg Tablet) 20 mg PO NOW ONE Stop: 10/04/24 13:32 Last Admin: 10/04/24 13:56 Dose: 20 mg Documented By: YURY Vital Signs Vital signs: Vital Signs - 8 hr 10/04/24 11:48 10/04/24 11:54 10/04/24 12:00 Temperature 97.8 F Pulse Rate 91 H 99 H Respiratory Rate 16 Blood Pressure 213/103 H 213/104 H Pulse Oximetry 96 96 Oxygen Delivery Method Room Air Room Air 10/04/24 12:30 10/04/24 12:43 10/04/24 12:43 Temperature Pulse Rate 95 H 91 H Respiratory Rate Blood Pressure 208/98 H Pulse Oximetry 96 96 Oxygen Delivery Method 10/04/24 13:00 10/04/24 13:01 10/04/24 13:01 Temperature Pulse Rate 85 84 Respiratory Rate 13 13 Blood Pressure 198/91 H Pulse Oximetry 95 96 Oxygen Delivery Method 10/04/24 13:30 10/04/24 13:31 10/04/24 13:31 Temperature Pulse Rate 87 87 Respiratory Rate 17 19 Blood Pressure 196/91 H Pulse Oximetry 96 96 Oxygen Delivery Method 10/04/24 13:52 10/04/24 13:52 10/04/24 14:00 Temperature Pulse Rate 81 Respiratory Rate 14 Blood Pressure 205/93 H 210/103 H Pulse Oximetry 97 Oxygen Delivery Method 10/04/24 14:00 10/04/24 14:02 10/04/24 14:03 Temperature Pulse Rate 92 H 87 Respiratory Rate 20 26 H Blood Pressure 205/96 H Pulse Oximetry 97 97 Oxygen Delivery Method 10/04/24 14:03 10/04/24 14:30 10/04/24 14:31 Temperature Pulse Rate 81 77 86 Respiratory Rate 12 11 L 14 Blood Pressure Pulse Oximetry 97 97 96 Oxygen Delivery Method 10/04/24 14:31 Temperature Pulse Rate Respiratory Rate Blood Pressure 191/91 H Pulse Oximetry Oxygen Delivery Method MDM - Back Pain/Injury Differential Diagnosis Differential diagnosis: Likely lumbar radiculopathy, sciatica and strain of lumbar region Imaging Data CT lumbar: Radiologist's Impression: [address] [address] [address] Scan Report Signed Patient: Hannah Valderrama MR#: [id number] : 1970 Acct:[id number] Age/Sex: 54 / F Date of Service: 10/04/24 Loc: ED Accession Number: [id number] Procedure: CT lumbar spine wo con Ordering Provider: Tye Snyder D.O. PROCEDURE: CT LUMBAR SPINE WO CON INDICATIONS: low back pain TECHNIQUE: Noncontrast 3 mm thick sections acquired from the T12 level to the sacrum. Sagittal and coronal reformats were constructed. For radiation dose reduction, the following was used: automated exposure control. COMPARISON: None. FINDINGS: Image quality: Diagnostic. Bones: There is normal bony alignment. No acute vertebral body compression fractures. No suspicious lytic or blastic bony lesions. No pars defects. T12-L1: No significant neuroforaminal or spinal canal stenosis. L1-L2: No significant neuroforaminal or spinal canal stenosis. L2-L3: Mild disc bulge. Ligamentum flavum hypertrophy. Minimal spinal canal. No significant neuroforaminal stenosis. L3-L4: Minimal disc bulge. No significant neuroforaminal or spinal canal stenosis. L4-L5: Moderate asymmetric to the right disc bulge. Bilateral facet arthropathy. Ligamentum flavum hypertrophy. Moderate canal stenosis. Moderate bilateral neuroforaminal stenosis. L5-S1: Moderate bilateral facet arthropathy. Ligamentum flavum hypertrophy. Minimal disc bulge. No significant spinal canal stenosis. No significant neuroforaminal stenosis. Soft tissues: No retroperitoneal masses or hematomas. Visualized aorta is normal in caliber. IMPRESSION: Lumbar spine without acute fracture or traumatic malalignment. Multilevel lumbar spondylosis most severe at L4-5 where combination of asymmetric to the right disc bulge, facet arthropathy, and ligamentum flavum hypertrophy results in moderate spinal canal stenosis and moderate bilateral neural foraminal stenosis that is more pronounced on the right side. MDM Narrative Medical decision making narrative: patient is a 54-year-old female history of low back pain presents for low back pain started earlier today when she was bent over and was picking up a dresser, she states that she had immediate pain but no loss of bowel urinary incontinence, no weakness tingling numbness to lower extremity, no other red flags for cauda equina. Patient had CT scan here which did show known degenerative disc disease at the L4-L5 area. Patient was able to stand ambulate with assistance here in the emergency department normal PVR. Improved symptoms after administration medication here patient was given strict return precautions will be safe for discharge home with outpatient follow up. Discharge Plan Departure Patient Disposition: Home Clinical Impression: Lumbar strain, DDD (degenerative disc disease), lumbar Activity Restrictions/Additional Instructions: please follow up with Orthopedic surgery and primary care Please read the discharge instructions sheet carefully and bring all papers to all doctor follow-up visits, as it may contain information that your doctor may want to see. Disease processes change and evolve, if your symptoms worsen or if you develop any new symptoms that are concerning to you please return for evaluation. Your evaluation today does not show any evidence of any life- threatening/serious illnesses requiring admission to the hospital or surgery. Please follow-up with your doctor for re-evaluation in approximately 1 day. Seek immediate medical attention for any worrisome symptoms. Prescriptions: New diazepam [Valium] 2 mg tablet 2 mg PO BID PRN (Reason: muscle spasm) 5 Days Qty: 10 0RF prednisone 20 mg tablet 20 mg PO DAILY 5 Days Qty: 5 0RF Referrals: Mirna Parsons MD [Physician] - Dru Dominguez DO [Primary Care Provider] - Stand Alone Forms: Patient Portal/API/Survey
--- NOTE | 2024-10-04 13:05 | PC.NURSE ---
Pt reports she was at home when pain started. Reports she was bending over for some time and developed sudden lower back pain 06/21. reports dark vision momentarily with pain. She states she is unable to stand on left leg due to increased pain and some diminished sensation in leg. Pulses equal. wiggles toes equally. pain constant and worse with movement. pt noticeably uncomfortable, denies any positional interventions at this time. at bedside. call soto in reach
--- NOTE | 2024-10-04 13:30 | DI.CT.S_ITS ---
PROCEDURE: CT LUMBAR SPINE WO CON INDICATIONS: low back pain TECHNIQUE: Noncontrast 3 mm thick sections acquired from the T12 level to the sacrum. Sagittal and coronal reformats were constructed. For radiation dose reduction, the following was used: automated exposure control. COMPARISON: None. FINDINGS: Image quality: Diagnostic. Bones: There is normal bony alignment. No acute vertebral body compression fractures. No suspicious lytic or blastic bony lesions. No pars defects. T12-L1: No significant neuroforaminal or spinal canal stenosis. L1-L2: No significant neuroforaminal or spinal canal stenosis. L2-L3: Mild disc bulge. Ligamentum flavum hypertrophy. Minimal spinal canal. No significant neuroforaminal stenosis. L3-L4: Minimal disc bulge. No significant neuroforaminal or spinal canal stenosis. L4-L5: Moderate asymmetric to the right disc bulge. Bilateral facet arthropathy. Ligamentum flavum hypertrophy. Moderate canal stenosis. Moderate bilateral neuroforaminal stenosis. L5-S1: Moderate bilateral facet arthropathy. Ligamentum flavum hypertrophy. Minimal disc bulge. No significant spinal canal stenosis. No significant neuroforaminal stenosis. Soft tissues: No retroperitoneal masses or hematomas. Visualized aorta is normal in caliber. IMPRESSION: Lumbar spine without acute fracture or traumatic malalignment. Multilevel lumbar spondylosis most severe at L4-5 where combination of asymmetric to the right disc bulge, facet arthropathy, and ligamentum flavum hypertrophy results in moderate spinal canal stenosis and moderate bilateral neural foraminal stenosis that is more pronounced on the right side. Dictated by: Rosas Vanegas M.D. on 10/04/2024 at 14:33 Approved by: Rosas Vanegas M.D. on 10/04/2024 at 14:43
[2024-10-04] MEDS: predniSONE 20 MG TABLET PO (13:56)
[2024-10-04] MEDS: diazePAM 2 MG TABLET PO (13:56)
[2024-10-04] MEDS: diazePAM 2 MG TABLET 1 MG PO (16:07)
== END 2024-10-04 16:30 | disposition home or self-care (01) ==
PROVIDERS: Emergency Provider Student in an Organized Health Care Education/Training Program; PCP Family Medicine
DX: S39.012A Strain of muscle, fascia and tendon of lower back, initial encounter (principal); M51.369 Other intervertebral disc degeneration, lumbar region without mention of lumbar back pain or lower extremity pain
CPT/HCPCS: 72131; 99284

== ENCOUNTER → 2025-05-20 07:24 | Outpatient (CLI) | payer OTHER, SELFPAY ==
[2021-06-21 10:34] VITALS: BMI 38.9
[2025-05-20 08:04] LABS: Add Manual Diff / Slide Review NO; Hematocrit 42.4 % (36-46); Hemoglobin 14.1 g/dL (12.0-16.0); Lymphocytes Absolute Auto 2600 /uL (1100-4500); Mean Corpuscular HGB Conc 33.3 % (30-36); Mean Corpuscular Hemoglobin 28.6 PG (26-34); Mean Corpuscular Volume 85.9 fL (80-100); Platelet Count 245 X10^3/uL (150-400)
[2025-05-20 08:27] LABS: Hemoglobin A1C% w Est Avg Glu 10.8 % (4.0-6.0)
[2025-05-20 08:53] LABS: Alanine Aminotransferase 85 IU/L (<35); Albumin 4.2 g/dL (3.5-5.0); Albumin Globulin Ratio 1.6 (1.0-2.8); Alkaline Phosphatase 83 U/L (38-126); Blood Urea Nitrogen 14 mg/dL (7-17); Calcium 9.5 mg/dL (8.4-10.2); Carbon Dioxide 25 mmol/L (22-32); Chloride 102 mmol/L (98-107); Cholesterol 141 mg/dL (140-199); Estimated Glomerular Filt Rate > 60 mL/min (>60); Globulin 2.6 g/dL (1.7-4.1); Glucose 273 mg/dL (70-99); HDL Cholesterol 38 mg/dL (40-60); HEMOLYSIS < 15 (0-50); Potassium 4.8 mmol/L (3.4-5.1); Sodium 137 mmol/L (137-145); Total Protein 6.8 g/dL (6.3-8.2); Triglycerides 131 mg/dL (35-150)
== END ==
PROVIDERS: PCP Family Medicine; Referring Provider Family Medicine; Visit Provider Family Medicine
DX: E11.9 Type 2 diabetes mellitus without complications (principal); I10 Essential (primary) hypertension
CPT/HCPCS: 36415; 80053; 80061; 83036; 85025

== ENCOUNTER → 2025-06-19 14:19 | Outpatient (CLI) | payer OTHER, SELFPAY ==
[2021-06-21 10:34] VITALS: BMI 38.9
[2025-06-19 15:16] LABS: Add Manual Diff / Slide Review NO; Hematocrit 41.5 % (36-46); Hemoglobin 13.8 g/dL (12.0-16.0); Lymphocytes Absolute Auto 3000 /uL (1100-4500); Mean Corpuscular HGB Conc 33.2 % (30-36); Mean Corpuscular Hemoglobin 29.1 PG (26-34); Mean Corpuscular Volume 87.5 fL (80-100); Platelet Count 248 X10^3/uL (150-400)
[2025-06-19 18:16] LABS: Alanine Aminotransferase 39 IU/L (<35); Albumin 4.5 g/dL (3.5-5.0); Albumin Globulin Ratio 1.5 (1.0-2.8); Alkaline Phosphatase 75 U/L (38-126); Blood Urea Nitrogen 14 mg/dL (7-17); Calcium 9.3 mg/dL (8.4-10.2); Carbon Dioxide 27 mmol/L (22-32); Chloride 102 mmol/L (98-107); Estimated Glomerular Filt Rate > 60 mL/min (>60); Globulin 3.1 g/dL (1.7-4.1); Glucose 126 mg/dL (70-99); HEMOLYSIS < 15 (0-50); Potassium 4.1 mmol/L (3.4-5.1); Sodium 139 mmol/L (137-145); Total Protein 7.6 g/dL (6.3-8.2)
[2025-06-19 18:34] LABS: Vitamin D 25 Hydroxy (D3) 24.6 ng/mL (30.0-100.0)
== END ==
PROVIDERS: PCP Family Medicine; Referring Provider Surgery; Visit Provider Surgery
DX: U09.9 Post COVID-19 condition, unspecified (principal)
CPT/HCPCS: 36415; 80053; 82306; 85025